=== PATIENT | male | born 1980 | race Two or more races ===

== ENCOUNTER 2017-10-19 17:08 | Emergency (ER) | payer OTHER ==
[2017-10-19] MEDS ORDERED: NORMAL SALINE 1000 ML 1,000 ML IV ONE (17:26)
--- NOTE | 2017-10-19 17:30 | ER Document Report ---
ED Medical Screen (RME) - General Chief Complaint: Headache Stated Complaint: HEADACHE Time Seen by Provider: 10/19/17 17:21 Notes: RAPID MEDICAL EVALUATION DISCLOSURE I have seen this patient as part of a Rapid Medical Evaluation and, if applicable, placed any initially appropriate orders. The patient will be seen and fully evaluated, including a full history and physical exam, by a provider ( in Main ED or Fast Track) when a room becomes available. 36-year-old male here with complaints of sudden onset occipital headache that started 1 hour ago and has progressively worsened. He has associated nausea photophobia or phonophobia. He denies any prior history of headaches. He initially denied any focal numbness tingling weakness during my PIT history taking but then stated he was starting to have some right arm numbness from the elbow down to the fingertips but nowhere else. He denies any head trauma or blood thinner usage. He denies any prior medical history. EXAM CTAB Irregular rhythm Normal heart rate Strength 5/5 all extremities Sensation intact upper extremities initially, however sensory deficit right upper extremity after new onset numbness Sensation intact elsewhere Appears to be having trouble concentrating TRAVEL OUTSIDE OF THE [place] IN LAST 30 DAYS: No - Related Data Allergies/Adverse Reactions: No Known Allergies Allergy (Unverified 10/19/17 17:10) Past Medical History - Social History Chew tobacco use (# tins/day): No Frequency of alcohol use: None Drug Abuse: None Renal/ Medical History: Denies: Hx Peritoneal Dialysis Physical Exam - Vital signs Vitals: Pulse Resp BP Pulse Ox 110 H 22 H 132/77 H 100 10/19/17 17:13 10/19/17 17:13 10/19/17 17:13 10/19/17 17:13 Course - Vital Signs Vital signs: Temp Pulse Resp BP Pulse Ox 110 H 22 H 132/77 H 100 10/19/17 17:13 10/19/17 17:13 10/19/17 17:13 10/19/17 17:13 Doctor's Discharge - Discharge Referrals: DAIANA ARENAS III, MD [Primary Care Provider] - Follow up as needed
[2017-10-19] MEDS ORDERED: KETOROLAC TROMETHAMINE INJ/PF 30 MG/1 ML SDV IV ONE (17:33)
[2017-10-19] MEDS ORDERED: METOCLOPRAMIDE HCL INJ/PF 10 MG/2 ML SDV IV ONE (17:33)
[2017-10-19] MEDS ORDERED: DIPHENHYDRAMINE HCL 50 MG/ML VIAL IV ONE (17:33)
[2017-10-19 17:39] LABS: ABSOLUTE EOSINOPHILS # (AUTO) 0.1 10^3/uL (0.0-0.6); ABSOLUTE LYMPHOCYTES (AUTO) 4.8 10^3/uL (0.5-4.7); ABSOLUTE MONOCYTES (AUTO) 0.7 10^3/uL (0.1-1.4); ABSOLUTE NEUT (AUTO) 4.7 10^3/uL (1.7-8.2); BASOPHILS % (AUTO) 0.4 % (0-2); EOSINOPHILS % (AUTO) 1.3 % (0-6); HEMATOCRIT 37.5 % (37.9-51.0); HEMOGLOBIN 12.6 g/dL (13.5-17.0); LYMPHOCYTES % (AUTO) 45.7 % (13-45); MEAN CORPUSCULAR HEMOGLOBIN 26.9 pg (27.0-33.4); MEAN CORPUSCULAR HGB CONC 33.7 g/dL (32.0-36.0); MEAN CORPUSCULAR VOLUME 80 fl (80-97); MONOCYTES % (AUTO) 7.1 % (3-13); PLATELET COUNT 308 10^3/uL (150-450); RED BLOOD COUNT 4.69 10^6/uL (4.35-5.55); RED CELL DISTRIBUTION WIDTH 13.4 % (11.5-14.0); SEGMENTED NEUTROPHILS % (AUTO) 45.5 % (42-78); TOTAL CELLS COUNTED % (AUTO) 100 %; WHITE BLOOD COUNT 10.4 10^3/uL (4.0-10.5)
[2017-10-19 17:44] LABS: INTERNATIONAL RATION (INR) 1.02; PARTIAL THROMBOPLASTIN TIME 30.8 SEC (23.5-35.8); PROTHROMBIN TIME 13.9 SEC (11.4-15.4)
--- NOTE | 2017-10-19 17:44 | ER Document Report ---
ED Headache - General Chief Complaint: Headache Stated Complaint: HEADACHE Time Seen by Provider: 10/19/17 17:21 Notes: The patient is a 36-year-old male who presents witha headache that started while he was at work. The headache is a pounding sensation located over the right posterior occipital area. He has had headaches in the past, but feels that this headache is worse. Headache started gradually, then intensified. He has not had a headache like this in the past. Patient was having mild tingling in his right forearm, but this has resolved. He denies blurry vision, fevers, neck stiffness, ataxia, head injury, blood thinner use, fevers or back pain. TRAVEL OUTSIDE OF THE [place] IN LAST 30 DAYS: No - Related Data Allergies/Adverse Reactions: No Known Allergies Allergy (Unverified 10/19/17 17:10) Past Medical History - General Information source: Patient - Social History Smoking Status: Never Smoker Chew tobacco use (# tins/day): No Frequency of alcohol use: None Drug Abuse: None Family History: Reviewed & Not Pertinent Patient has suicidal ideation: No Patient has homicidal ideation: No Renal/ Medical History: Denies: Hx Peritoneal Dialysis Review of Systems - Review of Systems Notes: REVIEW OF SYSTEMS: CONSTITUTIONAL: -fevers, -chills EENT: -eye pain, -difficulty swallowing, -nasal congestion CARDIOVASCULAR: -chest pain, -syncope. RESPIRATORY: -cough, -SOB GASTROINTESTINAL: -abdominal pain, -nausea, -vomiting, -diarrhea GENITOURINARY: -dysuria, -hematuria MUSCULOSKELETAL: -back pain, -neck pain SKIN: -rash or skin lesions. HEMATOLOGIC: -easy bruising or bleeding. LYMPHATIC: -swollen, enlarged glands. NEUROLOGICAL: -altered mental status or loss of consciousness, +headache, - neurologic symptoms PSYCHIATRIC: -anxiety, -depression. ALL OTHER SYSTEMS REVIEWED AND NEGATIVE. Physical Exam - Vital signs Vitals: Pulse Resp BP Pulse Ox 110 H 22 H 132/77 H 100 10/19/17 17:13 10/19/17 17:13 10/19/17 17:13 10/19/17 17:13 - Notes Notes: PHYSICAL EXAMINATION: GENERAL: Uncomfortable. HEAD: Atraumatic, normocephalic. EYES: Pupils equal round and reactive to light, extraocular movements intact, sclera anicteric, conjunctiva are normal. ENT: nares patent, oropharynx clear without exudates. Moist mucous membranes. NECK: Normal range of motion, supple without lymphadenopathy LUNGS: Breath sounds clear to auscultation bilaterally and equal. No wheezes rales or rhonchi. HEART: Regular rhythm, tachycardia ABDOMEN: Soft, nontender, normoactive bowel sounds. No guarding, no rebound. No masses appreciated. EXTREMITIES: Normal range of motion, no pitting or edema. No cyanosis. NEUROLOGICAL: Cranial nerves grossly intact. Normal speech, normal gait. Normal sensory and motor exams. PSYCH: Normal mood, normal affect. SKIN: Warm, Dry, normal turgor, no rashes or lesions noted. Course - Re-evaluation Re-evalutation: Patient started with headache 2 hours prior to arrival. Immediately brought back to CAT scan, which did not show any acute bleeds. Spoke to him about low risk for SAH with a negative CAT scan within 6 hours of his symptoms, but offered him a lumbar puncture to assess for the 0.3% of SAH not seen on CT scan. After headache cocktail, his headache has completely resolved. He declines LP at this time, even with the understanding of missing 0.3% of SAH. Blood work is unremarkable. Given very strict return precautions and he understands. - Vital Signs Vital signs: Temp Pulse Resp BP Pulse Ox 110 H 16 139/81 H 97 10/19/17 17:13 10/19/17 17:43 10/19/17 17:43 10/19/17 17:43 - Laboratory Result Diagrams: 10/19/17 16:55 10/19/17 16:55 Laboratory results interpreted by me: 10/19/17 10/19/17 16:55 16:55 Hgb 12.6 L Hct 37.5 L MCH 26.9 L Lymphocytes % 45.7 H Absolute Lymphocytes 4.8 H Potassium 3.4 L Carbon Dioxide 20 L BUN 5 L Glucose 141 H - Diagnostic Test Radiology reviewed: Image reviewed, Reports reviewed Radiology results interpreted by me: CT Head: NAD CXR: NAD - EKG Interpretation by Me EKG shows normal: Sinus rhythm, [place], Intervals, QRS Complexes, ST-T Waves Rate: Tachycardia Discharge - Discharge Clinical Impression: Headache Qualifiers: Headache type: unspecified Headache chronicity pattern: unspecified pattern Intractability: not intractable Qualified Code(s): R51 - Headache Condition: Stable Additional Instructions: HEADACHE: The physician does not feel that the headache you are experiencing has a serious underlying cause. Most headaches are due to emotional stress, with resultant muscle tension (tension headache). Occasionally, headaches are secondary to changes in the blood vessels of the scalp (vascular headache and migraine headache). Sometimes, a headache is the first symptom of another developing illness, such as a viral infection. You have no evidence of stroke, bleeding, meningitis, or other serious cause of your headache. The treatment of headaches varies with the severity and cause of the pain. Not all headaches need pain shots. In fact, there is evidence that using narcotics for headaches may make them worse in the long run. The physician will determine the therapy that's in your best interest. If you develop a fever, if the headache is different from any you've previously experienced, or if the headache progressively worsens, then call your physician at once or go to the emergency room. REGLAN (METOCLOPRAMIDE): Reglan has been prescribed. This medicine affects the stomach and intestines. It can be used to treat nausea and vomiting, to prevent reflux of stomach acid up into the esophagus, or to increase the contractions of the stomach and intestines. It is often prescribed for esophagitis, and for paralysis of the stomach in diabetics. Reglan can cause either mild restlessness or drowsiness. You should contact the doctor at once if you become extremely restless, anxious, or cannot sleep, or if you develop uncontrollable motions of the lips, tongue, or jaw. Do not take alcohol with this medicine. Do not drive or operate machinery until you have been taking this medicine long enough to know how it affects you. Call the doctor if you develop abdominal pains, lightheadedness, black stool, or blood in the stool or vomitus. USE OF DIPHENHYDRAMINE: Diphenhydramine (Benadryl) is an antihistamine and has been recommended to help treat your headache and to prevent side effects of other medications used to treat headaches. The medication can be repeated four times daily. Age Elixir (12.5 mg/tsp) 25 mg pill adult 1-2 tabs Antihistamines may cause drowsiness, especially with the first dose. Do not operate machinery or drive while under the effects of the medication. Do not combine the medication with alcohol, or with any other medication without talking to your doctor. TORADOL INJECTION: You have been given an injection of ketorolac tromethamine (Toradol). This is an excellent, safe drug for pain control. It also has potent antiinflammatory action. You should have significant pain relief within about one hour. Toradol is not addicting and is non-sedating. It does not interfere with driving or work. Call or return if you develop itching, hives, shortness of breath, or rash. FOLLOW-UP CARE: If you have been referred to a physician for follow-up care, call the physician s office for an appointment as you were instructed or within the next two days. If you experience worsening or a significant change in your symptoms, notify the physician immediately or return to the Emergency Department at any time for re-evaluation. Forms: Elevated Blood Pressure Referrals: DAIANA ARENAS III, MD [Primary Care Provider] - Follow up as needed
--- NOTE | 2017-10-19 17:47 | RADIOLOGY REPORT (SQ) ---
EXAM DESCRIPTION: CHEST SINGLE VIEW COMPLETED DATE/TIME: 10/19/2017 5:35 pm REASON FOR STUDY: stroke like sx COMPARISON: None. EXAM PARAMETERS: NUMBER OF VIEWS: One view. TECHNIQUE: Single frontal radiographic view of the chest acquired. RADIATION DOSE: NA LIMITATIONS: None. FINDINGS: LUNGS AND PLEURA: No opacities, masses or pneumothorax. No pleural effusion. MEDIASTINUM AND HILAR STRUCTURES: No masses. Contour normal. HEART AND VASCULAR STRUCTURES: Heart normal in size. Normal vasculature. BONES: No acute findings. HARDWARE: None in the chest. OTHER: No other significant finding. IMPRESSION: NO ACUTE RADIOGRAPHIC FINDING IN THE CHEST. TECHNICAL DOCUMENTATION: JOB ID: [id number] [id number] 2010 [employer] All Rights Reserved Reading location - IP/workstation name: [email or web address]
[2017-10-19 17:48] LABS: ANION GAP 19 (5-19); BLOOD UREA NITROGEN 5 mg/dL (7-20); CALCIUM 9.7 mg/dL (8.4-10.2); CARBON DIOXIDE 20 mmol/L (22-30); CHLORIDE 104 mmol/L (98-107); GLUCOSE 141 mg/dL (75-110); POTASSIUM 3.4 mmol/L (3.6-5.0); SODIUM 142.7 mmol/L (137-145)
--- NOTE | 2017-10-19 17:58 | RADIOLOGY REPORT (SQ) ---
EXAM DESCRIPTION: CT HEAD WITHOUT COMPLETED DATE/TIME: 10/19/2017 5:39 pm REASON FOR STUDY: SCHAEFER nausea RUE numb; eval head bleed infarct COMPARISON: None. TECHNIQUE: Axial images acquired through the brain without intravenous contrast. Images reviewed wi th bone, brain and subdural windows. Images stored on PACS. All CT scanners at this facility use dose modulation, iterative reconstruction, and/or weight based d osing when appropriate to reduce radiation dose to as low as reasonably achievable (ALARA). [facility]: Dose Right [facility]: CareDose [facility]: Dose Right [facility]: Teradose 4D [facility]: Smart CanaryHop RADIATION DOSE: CT Rad equipment meets quality standard of care and radiation dose reduction techniq ues were employed. CTDIvol: 53.2 mGy. DLP: 964 mGy-cm. mGy. LIMITATIONS: None. FINDINGS: VENTRICLES: Normal size and contour. CEREBRUM: No masses. No hemorrhage. No midline shift. No evidence for acute infarction. Normal gra y/white matter differentiation. No areas of low density in the white matter. CEREBELLUM: No masses. No hemorrhage. No alteration of density. No evidence for acute infarction. EXTRAAXIAL SPACES: No fluid collections. No masses. ORBITS AND GLOBE: No intra- or extraconal masses. Normal contour of globe without masses. CALVARIUM: No fracture. PARANASAL SINUSES: No fluid or mucosal thickening. SOFT TISSUES: No mass or hematoma. OTHER: No other significant finding. IMPRESSION: No acute intracranial findings. EVIDENCE OF ACUTE STROKE: NO. COMMENT: Quality ID # [id number]: Final reports with documentation of one or more dose reduction techniques (e.g., Automated exposure control, adjustment of the mA and/or kV according to patient size, use of iterative reconstruction technique) TECHNICAL DOCUMENTATION: JOB ID: [id number] [place]-72 2010 [employer]- All Rights Reserved Reading location - IP/workstation name: [email or web address]
[2017-10-19 18:27] VITALS: BP 136/77
--- NOTE | 2017-10-20 07:28 | EKG REPORT ---
SEVERITY:- ABNORMAL ECG - SINUS TACHYCARDIA MULTIPLE ATRIAL PREMATURE COMPLEXES BORDERLINE T ABNORMALITIES, INFERIOR LEADS : Confirmed by: Holger Ramirez MD 20-Oct-2017 07:27:36
== END 2017-10-19 18:34 | disposition home or self-care (01) ==
LOC: ER 17:08
DX: R51 Headache (principal)
CPT/HCPCS: 93005; 99285; 96361; 96374; 96375; 36415; 85025; 85610; 85730; 80048; 84484; 71045; 70450; 93010; J1200; J1885; J2765; J7030

== ENCOUNTER 2017-10-25 11:04 | Emergency (ER) | payer OTHER ==
--- NOTE | 2017-10-25 11:35 | ER Document Report ---
ED Medical Screen (RME) - General Chief Complaint: Chest Pain Stated Complaint: CHEST PAIN Time Seen by Provider: 10/25/17 11:21 Notes: Patient is a 36-year-old male who presents with 2 days of intermittent chest pressure and arm tingling. He was placed on a Holter monitor by Dr. Geremias Gupta this week. After his appointment this morning, he began to have shortness of breath and worsening chest pain, so he came to the ER. He was seen in the ER earlier this week for headache, which has completely resolved. PE: NAD. RRR. Lungs CTAB. I have greeted and performed a rapid initial assessment of this patient. A comprehensive ED assessment and evaluation of the patient, analysis of test results and completion of the medical decision making process will be conducted by additional ED providers. TRAVEL OUTSIDE OF THE [place] IN LAST 30 DAYS: No - Related Data Allergies/Adverse Reactions: No Known Allergies Allergy (Verified 10/25/17 11:05) Past Medical History - Social History Chew tobacco use (# tins/day): No Frequency of alcohol use: None Drug Abuse: None Renal/ Medical History: Denies: Hx Peritoneal Dialysis Past Surgical History: Reports: Hx Orthopedic Surgery - back, bulged disc removal Physical Exam - Vital signs Vitals: Temp Pulse Resp BP Pulse Ox 97.9 F 86 20 141/75 H 100 10/25/17 11:16 10/25/17 11:16 10/25/17 11:16 10/25/17 11:16 10/25/17 11:16 Course - Vital Signs Vital signs: Temp Pulse Resp BP Pulse Ox 97.9 F 86 20 141/75 H 100 10/25/17 11:16 10/25/17 11:16 10/25/17 11:16 10/25/17 11:16 10/25/17 11:16 Doctor's Discharge - Discharge Referrals: DAIANA ARENAS III, MD [Primary Care Provider] - Follow up as needed
[2017-10-25 12:44] LABS: ABSOLUTE LYMPHOCYTES (AUTO) 1.1 10^3/uL (0.5-4.7); ABSOLUTE MONOCYTES (AUTO) 0.6 10^3/uL (0.1-1.4); ABSOLUTE NEUT (AUTO) 11.3 10^3/uL (1.7-8.2); BASOPHILS % (AUTO) 0.1 % (0-2); EOSINOPHILS % (AUTO) 0.1 % (0-6); HEMATOCRIT 39.7 % (37.9-51.0); HEMOGLOBIN 13.2 g/dL (13.5-17.0); LYMPHOCYTES % (AUTO) 8.2 % (13-45); MEAN CORPUSCULAR HEMOGLOBIN 26.1 pg (27.0-33.4); MEAN CORPUSCULAR HGB CONC 33.3 g/dL (32.0-36.0); MEAN CORPUSCULAR VOLUME 78 fl (80-97); MONOCYTES % (AUTO) 4.8 % (3-13); PLATELET COUNT 298 10^3/uL (150-450); RED BLOOD COUNT 5.07 10^6/uL (4.35-5.55); RED CELL DISTRIBUTION WIDTH 13.4 % (11.5-14.0); SEGMENTED NEUTROPHILS % (AUTO) 86.8 % (42-78); TOTAL CELLS COUNTED % (AUTO) 100 %
--- NOTE | 2017-10-25 12:45 | RADIOLOGY REPORT (SQ) ---
EXAM DESCRIPTION: CHEST 2 VIEWS COMPLETED DATE/TIME: 10/25/2017 12:11 pm REASON FOR STUDY: SOB COMPARISON: None. EXAM PARAMETERS: NUMBER OF VIEWS: two views TECHNIQUE: Digital Frontal and Lateral radiographic views of the chest acquired. RADIATION DOSE: NA LIMITATIONS: none FINDINGS: LUNGS AND PLEURA: No opacities, masses or pneumothorax. No pleural effusion. MEDIASTINUM AND HILAR STRUCTURES: No masses or contour abnormalities. HEART AND VASCULAR STRUCTURES: Heart normal size. No evidence for failure. BONES: No acute findings. HARDWARE: None in the chest. OTHER: No other significant finding. IMPRESSION: NO ACUTE RADIOGRAPHIC FINDING IN THE CHEST. TECHNICAL DOCUMENTATION: JOB ID: [id number] [employer]- All Rights Reserved Reading location - IP/workstation name: [email or web address]
[2017-10-25 13:01] LABS: ALANINE AMINOTRANSFERASE 34 U/L (21-72); ALBUMIN 4.8 g/dL (3.5-5.0); ALKALINE PHOSPHATASE 78 U/L (38-126); ANION GAP 15 (5-19); ASPARTATE AMINO TRANSFERASE 29 U/L (17-59); BILIRUBIN,DIRECT 0.2 mg/dL (0.0-0.4); BILIRUBIN,TOTAL 0.8 mg/dL (0.2-1.3); BLOOD UREA NITROGEN 9 mg/dL (7-20); CARBON DIOXIDE 23 mmol/L (22-30); CHLORIDE 105 mmol/L (98-107); GLUCOSE 125 mg/dL (75-110); POTASSIUM 3.9 mmol/L (3.6-5.0); SODIUM 143.1 mmol/L (137-145); TOTAL PROTEIN 7.7 g/dL (6.3-8.2)
--- NOTE | 2017-10-25 15:19 | ER Document Report ---
ED General - General Chief Complaint: Chest Pain Stated Complaint: CHEST PAIN Time Seen by Provider: 10/25/17 11:21 Mode of Arrival: Ambulatory Information source: Patient Notes: This is a 36-year-old man presenting to the emergency room with chest heaviness. Patient states he started having these episodes of chest heaviness last . He states that he was usual state of health till about 3 PM last (6 days ago) when he developed a headache and shortly after the headache started having some chest heaviness. He was evaluated in the head CT at that time which was negative. Patient states that ever since that day he has had episodes of lightheadedness, shortness of breath and chest heaviness. Note the patient describes his previous episode as follows. Last week he was running 3 miles Monday and Monday without any difficulty. Monday he went to work without a problem. On , while at work, at approximately 3 PM he developed a severe occipital headache. He states he felt nauseated and not well. He did state that it was the worst headache of his life. He was evaluated in the ER and his head CT was done which was negative. He states that the headache did improve over the next day. And currently he does not have any significant headaches. He has no history of migraines or bad headaches in the past. Since this time, he has been having these episodes of chest heaviness, shortness of breath. Family history: No cardiac disease. Patient's dad does have diabetes. He has 1 younger sister with diabetes. He has 2 brothers of without any significant health problems. His mother has history of breast cancer. Patient does not smoke. He denies drugs. TRAVEL OUTSIDE OF THE [place] IN LAST 30 DAYS: No - HPI Onset: Last week Onset/Duration: Gradual Quality of pain: Dull Severity: Moderate Pain Level: 3 Associated symptoms: Chest pain, Headache, Shortness of breath, Other - Headache. denies: Fever Exacerbated by: Denies Relieved by: Denies Similar symptoms previously: Yes Recently seen / treated by doctor: Yes - Related Data Allergies/Adverse Reactions: No Known Allergies Allergy (Verified 10/25/17 11:05) Past Medical History - General Information source: Patient - Social History Smoking Status: Former Smoker Cigarette use (# per day): No Chew tobacco use (# tins/day): No Frequency of alcohol use: None Drug Abuse: None Lives with: Family Family History: Reviewed & Not Pertinent Patient has suicidal ideation: No Patient has homicidal ideation: No - Medical History Medical History: Negative Renal/ Medical History: Denies: Hx Peritoneal Dialysis Past Surgical History: Reports: Hx Orthopedic Surgery - back, bulged disc removal Review of Systems - Review of Systems Constitutional: denies: Chills, Fever EENT: No symptoms reported Cardiovascular: See HPI Respiratory: See HPI Gastrointestinal: No symptoms reported Genitourinary: No symptoms reported Male Genitourinary: No symptoms reported Musculoskeletal: No symptoms reported Skin: No symptoms reported Neurological/Psychological: Headaches - Although he does not have a headache now. denies: Gait changes, Loss of power, Paralysis, Seizure, Lost consciousness, Numbness Physical Exam - Vital signs Vitals: Temp Pulse Resp BP Pulse Ox 97.9 F 86 20 141/75 H 100 10/25/17 11:16 10/25/17 11:16 10/25/17 11:16 10/25/17 11:16 10/25/17 11:16 Notes: Physical exam: GENERAL: 36-year-old man, alert and oriented 3, no acute distress. He does appear little anxious. HEAD: Atraumatic, normocephalic. EYES: Pupils equal round and reactive to light, extraocular movements intact, sclera anicteric, conjunctiva are normal. ENT: TMs normal, nares patent, oropharynx clear without exudates. Moist mucous membranes. NECK: Normal range of motion, supple without obvious mass or JVD. LUNGS: Breath sounds clear to auscultation bilaterally and equal. No wheezes rales or rhonchi. HEART: Regular rate and rhythm without murmurs, rubs or gallops. ABDOMEN: Soft, normoactive bowel sounds. No tenderness to palpation. No guarding, no rebound. No masses appreciated. EXTREMITIES: Normal range of motion, no pitting or edema. No clubbing or cyanosis. NEUROLOGICAL: Cranial nerves II through XII grossly intact. Normal speech, moving all extremities. PSYCH: Normal mood, normal affect. SKIN: Warm, Dry, normal turgor, no rashes or lesions noted. Course - Re-evaluation Re-evalutation: 10/25/17 19:22 Note: Given the sudden nature of this relatively healthy 36-year-old man, a workup was as follows. He was followed on cardiac monitors and had serial enzymes. There was no ectopy or arrhythmias noted. Troponins 2 were negative. CTA of the chest showed no evidence of pulmonary emboli, aortic dissection or aortic aneurysm. The patient was seen by Dr. Pablo (wire photo operator news) in the emergency room and he felt patient was safe for discharge and will follow the patient up in the office. Heart score is 0. To address the recent headache, MRI and MRA of the brain was performed. There is no evidence of stroke or aneurysm. Neurologically, the patient has remained intact. The patient has an appointment with Dr. Perez tomorrow and will follow up with him in the office. He does have a 4 hour heart monitor on. I did discuss the case with Dr. Perez and Dr. Perez had seen the patient in the ER as well. 10/25/17 19:28 - Vital Signs Vital signs: Temp Pulse Resp BP Pulse Ox 97.9 F 86 12 124/70 98 10/25/17 11:16 10/25/17 11:16 10/25/17 19:01 10/25/17 19:01 10/25/17 19:01 - Laboratory Result Diagrams: 10/25/17 12:25 10/25/17 12:25 Laboratory results interpreted by me: 10/25/17 10/25/17 12:25 12:25 WBC 13.0 H Hgb 13.2 L MCV 78 L MCH 26.1 L Seg Neutrophils % 86.8 H Lymphocytes % 8.2 L Absolute Neutrophils 11.3 H Glucose 125 H - Diagnostic Test Radiology reviewed: Image reviewed, Reports reviewed - X-ray is clear - EKG Interpretation by Me Rate: Normal Rhythm: NSR - EKG shows normal sinus rhythm with a ventricular rate of 77, no acute ST-T wave changes Discharge - Discharge Clinical Impression: Chest pain, Headache Condition: Stable Disposition: HOME, SELF-CARE Additional Instructions: As we discussed, your cardiac enzymes look quite good today. Your other labs look good. CT of the chest showed no evidence of blood clots or aneurysm. MRI of the brain and MRA of the brain showed no evidence of aneurysms or masses. We would like you to take it easy for the next few days. I want you to follow-up with Dr. Perez tomorrow as planned. I want you to call Dr. Pablo's office tomorrow to schedule that outpatient stress test. Return to the emergency room for worsening chest pain, worsening shortness of breath or any concerns or getting worse. Referrals: JAVAN PEREZ MD [Primary Care Provider] - Follow up tomorrow MEERA PABLO MD [ACTIVE STAFF] - Follow up tomorrow
--- NOTE | 2017-10-25 15:35 | RADIOLOGY REPORT (SQ) ---
EXAM DESCRIPTION: CTA CHEST COMPLETED DATE/TIME: 10/25/2017 3:18 pm REASON FOR STUDY: chest pain COMPARISON: Chest x-ray 10/19/2017 TECHNIQUE: CT scan of the chest performed using helical scanning technique with dynamic intravenous contrast injection. Images reviewed with lung, soft tissue and bone windows. Reconstructed coronal and sagittal MPR images reviewed. Additional 3 dimensional post-processing performed to develop Maximal Intensity Projection images ([place] P). All images stored on PACS. All CT scanners at this facility use dose modulation, iterative reconstruction, and/or weight based d osing when appropriate to reduce radiation dose to as low as reasonably achievable (ALARA). [facility]: Dose Right [facility]: CareDose [facility]: Dose Right [facility]: Teradose 4D [facility]: Zoodak CONTRAST TYPE AND DOSE: contrast/concentration: Isovue 370.00 mg/ml; Total Contrast Delivered: 80.0 ml; Total Saline Delivered: 90.0 ml Contrast bolus optimized for the pulmonary arteries. Not diagnostic for the aorta. RENAL FUNCTION: None required. The patient is less than 50 years old. RADIATION DOSE: CT Rad equipment meets quality standard of care and radiation dose reduction techniq ues were employed. CTDIvol: 9.9 - 19.8 mGy. DLP: 802 mGy-cm. . LIMITATIONS: None. FINDINGS: LUNGS AND PLEURA: No masses, infiltrates, pneumothorax. No pleural effusions, calcificati ons. AORTA AND GREAT VESSELS: No aneurysm. Contrast bolus not optimized for the aorta. HEART: No pericardial effusion. No significant coronary artery calcifications. PULMONARY ARTERIES: No emboli visualized in the main pulmonary arteries or the segmental branches. HILAR AND MEDIASTINAL STRUCTURES: No identified masses or abnormal nodes. HARDWARE: None in the chest. UPPER ABDOMEN: No significant findings. Limited exam. THYROID AND OTHER SOFT TISSUES: No masses. No adenopathy. BONES: No acute or significant finding. 3D MIPS: Confirm above findings. OTHER: No other significant finding. IMPRESSION: NORMAL CTA OF THE CHEST. NO PULMONARY EMBOLI. COMMENT: Quality ID # [id number]: Final reports with documentation of one or more dose reduction techniques (e.g., Automated exposure control, adjustment of the mA and/or kV according to patient size, use of iterative reconstruction technique) TECHNICAL DOCUMENTATION: JOB ID: [id number] [employer]- All Rights Reserved Reading location - IP/workstation name: [email or web address]
--- NOTE | 2017-10-25 17:03 | RADIOLOGY REPORT (SQ) ---
EXAM DESCRIPTION: MRA HEAD WITHOUT COMPLETED DATE/TIME: 10/25/2017 4:38 pm REASON FOR STUDY: headache COMPARISON: None. TECHNIQUE: Axial 3-D [id number] acquisition imaging performed through the brain in the area of t he [place] of [place]. Images reformatted using 3-D MIPS. LIMITATIONS: None. FINDINGS: SOURCE IMAGES: No unexpected findings on source images. No large masses. 3-D MIP: No aneurysm. No occlusions. No significant stenosis. OTHER: No other significant finding. IMPRESSION: NORMAL MRA OF THE [place] OF [place]. TECHNICAL DOCUMENTATION: JOB ID: [id number] [employer]- All Rights Reserved Reading location - IP/workstation name: [email or web address]
--- NOTE | 2017-10-25 17:12 | RADIOLOGY REPORT (SQ) ---
EXAM DESCRIPTION: MRI HEAD WITHOUT COMPLETED DATE/TIME: 10/25/2017 4:50 pm REASON FOR STUDY: headache, rue weakness COMPARISON: Brain CT scan dated 10/19/2017 TECHNIQUE: Multiplanar imaging includes non-contrasted T1, T2, FLAIR, and diffusion with ADC map seq uences. Images stored on PACS. LIMITATIONS: None. FINDINGS: ANATOMY: No anomalies. Normal vascular flow voids. Pituitary fossa normal. CSF SPACES: Normal in size and contour. No hemorrhage. CEREBRUM: Sulci and gyri normal in size and contour. Normal white matter signal on FLAIR imaging. No evidence of hemorrhage, mass, or extraaxial fluid collection. POSTERIOR FOSSA: No signal alteration. No hemorrhage. No edema, masses or mass effect. Internal holland tory canals, cerebello-pontine angles, mastoids normal. DIFFUSION IMAGING: Negative for acute or sub-acute infarction. ORBITS: No masses. Globes normal. PARANASAL SINUSES: No fluid levels. Mucosa normal. OTHER: No other significant finding. IMPRESSION: NORMAL MRI OF THE BRAIN WITHOUT INTRAVENOUS GADOLINIUM CONTRAST. EVIDENCE OF ACUTE STROKE: NO. TECHNICAL DOCUMENTATION: JOB ID: [id number] [employer]- All Rights Reserved Reading location - IP/workstation name: [email or web address]
[2017-10-25 19:31] VITALS: BP 124/70
--- NOTE | 2017-10-25 22:18 | EKG REPORT ---
SEVERITY:- NORMAL ECG - SINUS RHYTHM : Confirmed by: Cornel Abad 25-Oct-2017 22:18:24
--- NOTE | 2017-10-26 15:59 | PDOC H&P ---
History of Present Illness Admission Date/PCP: JAVAN PEREZ MD Patient complains of: Chest pressure History of Present Illness: TAVON RAMIRES is a 36 year old male This is a 35-year-old male pretty healthy no medical problem except chronic back issues which currently not taking any medications feeling dizzy and the chest pressure last and came to the emergency departmentAnd patient initial CT of the head and cardiac workup and EKG was all negative patient was discharged Patients came in the office today still feeling on and off some chest pressure but no headache no other symptoms patient's vital sign is all stable and patient was put on a Holter monitor for further evaluations Patient's tried to use some viks vapour And feel better but again patients feel more patient in the chest and patients came to the emergency department with initial EKG and cardiac enzymes all negative Patient's CT angiogram was also done was also negative Patient's also noticed that she has some sinus pressure last week but not anymore patients feeling some sinus pressure in the left side of the headPatient 's white count is slightly elevated Patient's denied any fever no chills Patient's denied any blurry vision Or double vision When I saw the patient in the emergency departments patient's denied any headache denied any dizziness denied any visual problem Patient's denied any chest pain at this point Patient is currently undergoing for the MRI and MRA of the head Discussed with the patient and the in the emergency department and discussed with the cardiology Dr. Abad and discussed with the ER physicians Past Surgical History Past Surgical History: Reports: Orthopedic Surgery - back, bulged disc removal Social History Information Source: Patient Lives with: Family Smoking Status: Former Smoker Frequency of Alcohol Use: Occasional Hx Recreational Drug Use: No Family History Family History: Reviewed & Not Pertinent Parental Family History Reviewed: Yes Children Family History Reviewed: Yes Sibling(s) Family History Reviewed.: Yes Medication/Allergy Home Medications: No Home Medications 10/25/17 Allergies/Adverse Reactions: No Known Allergies Allergy (Verified 10/25/17 11:05) Review of Systems Constitutional: PRESENT: headache(s). ABSENT: chills, fever(s), weight gain, weight loss Eyes: ABSENT: visual disturbances Ears: ABSENT: hearing changes Cardiovascular: PRESENT: chest pain, palpitations. ABSENT: dyspnea on exertion , edema, orthropnea Respiratory: ABSENT: cough, hemoptysis Gastrointestinal: ABSENT: abdominal pain, constipation, diarrhea, hematemesis, hematochezia, nausea, vomiting Genitourinary: ABSENT: dysuria, hematuria Musculoskeletal: ABSENT: joint swelling Integumentary: ABSENT: rash, wounds Neurological: ABSENT: abnormal gait, abnormal speech, confusion, dizziness, focal weakness, syncope Psychiatric: ABSENT: anxiety, depression, homidical ideation, suicidal ideation Endocrine: ABSENT: cold intolerance, heat intolerance, menstrual abnormalities, polydipsia, polyuria Hematologic/Lymphatic: ABSENT: easy bleeding, easy bruising, lymphadenopathy Physical Exam Vital Signs: Temp Pulse Resp BP Pulse Ox 97.9 F 86 20 141/75 H 100 10/25/17 11:16 10/25/17 11:16 10/25/17 11:16 10/25/17 11:16 10/25/17 11:16 Intake & Output 10/24/17 10/25/17 10/26/17 06:59 06:59 06:59 Weight 97.7 kg General appearance: PRESENT: no acute distress, well-developed, well-nourished Head exam: PRESENT: atraumatic, normocephalic Eye exam: PRESENT: conjunctiva pink, EOMI, PERRLA. ABSENT: scleral icterus Ear exam: PRESENT: normal external ear exam Mouth exam: PRESENT: moist, tongue midline Throat exam: ABSENT: post pharyngeal erythema, tonsillar erythema, tonsillar exudate, tonsillogmegaly, other Neck exam: PRESENT: full ROM. ABSENT: carotid bruit, JVD, lymphadenopathy, thyromegaly Respiratory exam: PRESENT: clear to auscultation leyla Cardiovascular exam: PRESENT: RRR. ABSENT: diastolic murmur, rubs, systolic murmur Pulses: PRESENT: normal dorsalis pedis pul, +2 pedal pulses bilateral Vascular exam: PRESENT: normal capillary refill GI/Abdominal exam: PRESENT: normal bowel sounds, soft. ABSENT: distended, guarding, mass, organolmegaly, rebound, tenderness Rectal exam: PRESENT: deferred Extremities exam: PRESENT: full ROM. ABSENT: pedal edema Musculoskeletal exam: PRESENT: ambulatory Neurological exam: PRESENT: alert, awake, oriented to person, oriented to place , oriented to time, oriented to situation, reflexes normal, CN II-XII grossly intact, normal gait. ABSENT: motor sensory deficit Psychiatric exam: PRESENT: appropriate affect, normal mood. ABSENT: homicidal ideation, suicidal ideation Skin exam: PRESENT: dry, intact, warm. ABSENT: cyanosis, rash Results Laboratory Results: 10/25/17 12:25 10/25/17 12:25 10/25/17 10/25/17 12:25 12:25 WBC 13.0 H RBC 5.07 Hgb 13.2 L Hct 39.7 MCV 78 L MCH 26.1 L MCHC 33.3 RDW 13.4 Plt Count 298 Seg Neutrophils % 86.8 H Lymphocytes % 8.2 L Monocytes % 4.8 Eosinophils % 0.1 Basophils % 0.1 Absolute Neutrophils 11.3 H Absolute Lymphocytes 1.1 Absolute Monocytes 0.6 Absolute Eosinophils 0.0 Absolute Basophils 0.0 Sodium 143.1 Potassium 3.9 Chloride 105 Carbon Dioxide 23 Anion Gap 15 BUN 9 Creatinine 0.73 Est GFR ( Amer) > 60 Est GFR (Non-Af Amer) > 60 Glucose 125 H Calcium 10.0 Total Bilirubin 0.8 AST 29 ALT 34 Alkaline Phosphatase 78 Total Protein 7.7 Albumin 4.8 10/25/17 12:25 Troponin I < 0.012 Impressions: Chest X-Ray 10/25/17 11:30 IMPRESSION: NO ACUTE RADIOGRAPHIC FINDING IN THE CHEST. Chest/Abdomen CTA 10/25/17 14:49 IMPRESSION: NORMAL CTA OF THE CHEST. NO PULMONARY EMBOLI. Assessment & Plan - Diagnosis (1) Chest pain Qualifiers: Chest pain type: other chest pain Qualified Code(s): R07.89 - Other chest pain; R07.8 - Other chest pain Is this a current diagnosis for this admission?: Yes Plan: Very unclear etiology very extensive history taking patient was doing some exercise Monday to Monday but just a routine exercise and patient started developing the symptoms on with no significant underlying any risk factor no family history of any heart disease very atypical pain Discussed with the cardiology and evaluate the patient on a cardiac standpoint while patient all the other workup is negative Since denied any GI symptoms could be underlying some reflex Discussed with the patient and the in the emergency departmentAbout all plan and possible need of further workup (2) Headache Qualifiers: Headache type: unspecified Headache chronicity pattern: unspecified pattern Intractability: not intractable Qualified Code(s): R51 - Headache Is this a current diagnosis for this admission?: Yes Plan: Patient's initial CT head on the last was negative patient does not have any known neurological signs or symptoms with a completely normal exam will wait for the MRI report patient is currently denied any headache at this point (3) Sinusitis Qualifiers: Sinusitis location: frontal Recurrence: not specified as recurrent Is this a current diagnosis for this admission?: Yes Plan: Patient have this elevated white count with some sinus pressure last week will start the patient on Augmentin and the Flonase - Time Time Spent: 30 to 50 Minutes Medications reviewed and adjusted accordingly: Yes Anticipated discharge: Home Within: Other - Inpatient Certification Medical Necessity: Need Close Monitoring Due to Risk of Patient Decompensation Post Hospital Care: D/C [employer] Documentation - Plan Summary Plan Summary: Admit the patient in the telemetry bed Consult the cardiology for further evaluation Start the patient on a Protonix Discussed with the patient and the in the emergency departments Patient seen by the Dr. Abad the diamond cleaver and patient is already feeling better and as per discussed with that there is no need for admission and he will follow the patient in the morning and do the further workup and patients and the agree and he will discuss with the ER physician and patient discharged home
--- NOTE | 2017-10-26 19:46 | PDOC CONSULTATION ---
Consultation Consult Date: 10/25/17 Attending physician:: JAVAN PEREZ Consult reason:: Chest pain History of Present Illness Admission Date/PCP: JAVAN PEREZ MD Patient complains of: Chest pain History of Present Illness: TAVON RAMIRES is a 36 year old male presenting to the emergency room with chest heaviness. Patient states he started having these episodes of chest heaviness last . He states that he was usual state of health till about 3 PM last (6 days ago) when he developed a headache and shortly after the headache started having some chest heaviness. He was evaluated in the head CT at that time which was negative. Patient states that ever since that day he has had episodes of lightheadedness, shortness of breath and chest heaviness. Note the patient describes his previous episode as follows. Last week he was running 3 miles Monday and Monday without any difficulty. Monday he went to work without a problem. On , while at work, at approximately 3 PM he developed a severe occipital headache. He states he felt nauseated and not well. He did state that it was the worst headache of his life. He was evaluated in the ER and his head CT was done which was negative. He states that the headache did improve over the next day. And currently he does not have any significant headaches. He has no history of migraines or bad headaches in the past. Since this time, he has been having these episodes of chest heaviness, shortness of breath. Family history: No cardiac disease. Patient's dad does have diabetes. He has 1 younger sister with diabetes. He has 2 brothers of without any significant health problems. His mother has history of breast cancer. Patient does not smoke. He denies drugs. This history obtained was reviewed and confirmed. Patient does have problems with insomnia. Patient has difficulty falling asleep and staying asleep. He has noted recently some daytime fatigue and tiredness. Patient claims that during 1 of this chest pain episode he became dizzy and felt like he was going to . He was noted to be somewhat sweaty. He also noted some palpitations. Past Surgical History Past Surgical History: Reports: Orthopedic Surgery - back, bulged disc removal Social History Information Source: Patient Lives with: Family Smoking Status: Former Smoker Frequency of Alcohol Use: Occasional Hx Recreational Drug Use: No - Advance Directive Resuscitation Status: Full Code Surrogate healthcare decision maker:: Patient's spouse is the surrogate decision-maker Family History Family History: Reviewed & Not Pertinent Parental Family History Reviewed: Yes Children Family History Reviewed: Yes Sibling(s) Family History Reviewed.: Yes - Negative for premature coronary artery disease or sudden cardiac in the family amongst first degree relatives. Medication/Allergy Home Medications: No Home Medications 10/25/17 Allergies/Adverse Reactions: No Known Allergies Allergy (Verified 10/25/17 11:05) Review of Systems Review of Systems: Please see history of present illness and past medical history as wall. Constitutional: No fever or chills reported. Head : No recent chronic headaches, recent head injury. Eyes: No recent eye pain, diplopia, redness, discharge, acute visual changes. Ears: No recent chronic ear pain, acute hearing loss, ear discharge. Oral cavity: No recent ulcerations, bleeding, oral cavity discomfort. Neck: No recent acute neck pain reported. Hematologic: No recent easy bruising or bleeding. Lymphatic: No recent lymph node enlargement reported. Cardiovascular system review: See history of present illness. Respiratory system review: No hemoptysis or blood clots in the lungs reported. Mild Shortness of breath on exertion Gastrointestinal system review: Negative for any recent acute hematemesis, melena. Genitourinary system review: No recent acute or chronic hematuria, flank pain, UTI etc. reported. Skin system review: Negative for any recent abnormal bruising, no rash, no pruritus reported. Neurologic: No prior history of strokes, mini strokes, seizure disorder. Patient takes sleeping pills on a as needed basis. Psychologic: No history of major psychosis or major depression reported. Musculoskeletal: Minor aches and pains reported. No acute joint swelling reported. Endocrine: No recent polyuria, polydipsia, recent heat or cold intolerance. Physical Exam Vital Signs: Temp Pulse Resp BP Pulse Ox 97.9 F 86 12 124/70 98 10/25/17 11:16 10/25/17 11:16 10/25/17 19:01 10/25/17 19:01 10/25/17 19:01 Intake & Output 10/25/17 10/26/17 10/27/17 06:59 06:59 06:59 Weight 97.7 kg Exam: GENERAL: well-nourished and in no acute distress. Alert and oriented x3 HEAD: Atraumatic, normocephalic. EYES: Pupils equal round and reactive to light, extraocular movements intact, sclera anicteric, conjunctiva are normal. ENT: TMs normal, nares patent, oropharynx clear without exudates. Moist mucous membranes. No oral ulcerations or bleeding gums noted NECK: supple without lymphadenopathy. Trachea is central. No cervical or axillary lymphadenopathy noted. Carotids are 2+, JVD WNL LUNGS: Respiration seems nonlabored, no significant accessory muscle action noted. Breath sounds clear to auscultation bilaterally and equal noted. No wheezes rales or rhonchi noted. No significant dullness noted on percussion. CHEST: Palpation of the chest wall shows shows point tenderness at second and third costochondral junction. HEART: [place] [employer], No PSH, 1/6 SULEMAN aortic area, 1/6 bnaks systolic murmur mitral area, no rubs, no gallops. ABDOMEN: Soft, no significant tenderness appreciated, normoactive bowel sounds. No guarding, no rebound. No rigidity noted . No masses appreciated. EXTREMITIES: Pedal pulses are 1-2+, no calf tenderness noted. No clubbing or cyanosis. negative pedal edema noted NEUROLOGICAL: Focused neurological exam showed no significant neurologic deficit. Normal speech, no focal weakness appreciated. PSYCH: Normal mood, normal affect. Judgment and insight within normal limits. SKIN: No significant ecchymosis, skin is noted to be warm. MUSCULOSKELETAL EXAM: No significant acute joint swelling noted. Results Laboratory Results: 10/25/17 12:25 10/25/17 12:25 10/25/17 10/25/17 12:25 17:15 Troponin I < 0.012 < 0.012 EKG Comments: Sinus rhythm, no acute ST-T wave changes are noted. Impressions: Chest X-Ray 10/25/17 11:30 IMPRESSION: NO ACUTE RADIOGRAPHIC FINDING IN THE CHEST. Chest/Abdomen CTA 10/25/17 14:49 IMPRESSION: NORMAL CTA OF THE CHEST. NO PULMONARY EMBOLI. Brain MRI with MRA 10/25/17 15:37 IMPRESSION: NORMAL MRA OF THE [place] OF [place]. Head MRI 10/25/17 15:49 IMPRESSION: NORMAL MRI OF THE BRAIN WITHOUT INTRAVENOUS GADOLINIUM CONTRAST. EVIDENCE OF ACUTE STROKE: NO. Assessment & Plan - Diagnosis (1) Chest pain Qualifiers: Chest pain type: other chest pain Qualified Code(s): R07.89 - Other chest pain; R07.8 - Other chest pain Is this a current diagnosis for this admission?: Yes (2) Headache Qualifiers: Headache type: unspecified Headache chronicity pattern: unspecified pattern Intractability: not intractable Qualified Code(s): R51 - Headache Is this a current diagnosis for this admission?: Yes (3) Panic disorder [episodic paroxysmal anxiety] Is this a current diagnosis for this admission?: Yes (4) Insomnia Qualifiers: Insomnia type: unspecified Qualified Code(s): G47.00 - Insomnia, unspecified Is this a current diagnosis for this admission?: Yes - Notes Notes: Chest pain: Patient has no cardiac risk factors. Although patient has some typical symptoms, overall suspicion based on pretest probability is low. Patient also noted to have some chest wall discomfort. It seems patient symptoms can be explained mostly by anxiety panic disorder. However patient will benefit from a stress test. Feel that in view of negative enzymes and negative EKG, patient could be discharged with above stress testing and a 2D echo being performed as an outpatient. Anxiety panic disorder: Patient seems to have this condition. Patient to complete a PHQ 9 and a panic attack questionnaire as an outpatient to evaluate this further. Insomnia: Patient's oropharyngeal exam, slightly receding chin suggest that he may have actually underlying sleep apnea syndrome. Patient will benefit from such evaluation for home sleep study. This was discussed. Costochondritis: This was noted whether this completely explains his chest pain is not clear. Patient being discharged. - Time Time Spent: 30 to 50 Minutes - More than 50% of the time spent coordinating care , discussing management plans with involved caregivers. Management plans discussed with involved personnels. Medical decision making was of moderate to high complexity, patient's has multiple comorbidities. Medications reviewed and adjusted accordingly: Yes
== END 2017-10-25 19:39 | disposition home or self-care (01) ==
LOC: ER 11:04
DX: R07.9 Chest pain, unspecified (principal); R51 Headache; R42 Dizziness and giddiness; R06.02 Shortness of breath; G47.00 Insomnia, unspecified; R53.83 Other fatigue; F41.0 Panic disorder [episodic paroxysmal anxiety]; Z83.3 Family history of diabetes mellitus; Z80.3 Family history of malignant neoplasm of breast; Z87.891 Personal history of nicotine dependence
CPT/HCPCS: 36415; 70544; 70551; 71046; 71275; 80053; 84484; 85025; 93005; 93010; 99285

== ENCOUNTER → 2017-12-20 | Outpatient (CLI) | payer OTHER ==
--- NOTE | 2017-12-20 09:46 | RADIOLOGY REPORT (SQ) ---
EXAM DESCRIPTION: U/S ABDOMEN LIMITED W/O DOP COMPLETED DATE/TIME: 12/20/2017 8:52 am REASON FOR STUDY: CHEST PAIN ,UNSPEC R07.9 CHEST PAIN, UNSPECIFIED COMPARISON: CT angio chest 10/25/2017 TECHNIQUE: Dynamic and static grayscale images acquired of the abdomen and recorded on PACS. Additio nal selected color Doppler and spectral images recorded. LIMITATIONS: Midline bowel gas FINDINGS: PANCREAS: Not well seen LIVER: No masses. Echotexture normal. LIVER VASCULATURE: Normal directional flow of the main portal vein and hepatic veins. GALLBLADDER: No stones. Normal wall thickness. No pericholecystic fluid. ULTRASOUND-DETECTED MUÑOZ'S SIGN: Negative. INTRAHEPATIC DUCTS AND COMMON DUCT: CBD and intrahepatic ducts normal caliber. No filling defects. INFERIOR VENA CAVA: Normal flow. AORTA: No aneurysm. RIGHT KIDNEY: Normal size. Normal echogenicity. No solid or suspicious masses. No hydronephrosis. No calcifications. PERITONEAL AND RIGHT PLEURAL SPACE: No ascites or effusions. OTHER: No other significant findings. IMPRESSION: No gallstones, gallbladder wall thickening or pericholecystic fluid to suggest acute cho lecystitis. Pancreas not well visualized TECHNICAL DOCUMENTATION: JOB ID: [id number] [employer]- All Rights Reserved Reading location - IP/workstation name: [email or web address]
== END ==
LOC: RAD 08:20
PROVIDERS: ATTEND Internal Medicine Gastroenterology
DX: R07.9 Chest pain, unspecified (principal)
CPT/HCPCS: 76705